=== PATIENT | female | born 1990 | race Two or more races ===

== ENCOUNTER 2022-09-18 09:51 | Emergency (ER) | payer OTHER, MEDICAID ==
[~2022-09-18] VITALS: Ht 160 cm; Wt 96.8 kg
[2022-09-18 10:10] VITALS: BP 136/77
[2022-09-18] MEDS ORDERED: HYDROcodone-ACET 10/325MG TAB PO ONE (10:15)
[2022-09-18 10:35] LABS: Basophils # (auto) 0.1 10 ^3/uL (0-0.2); Basophils % (auto) 0.9 % (0.0-2.0); Eosinophils # (auto) 0 10 ^3/uL (0-0.8); Eosinophils % (auto) 0.6 % (0.0-7.0); Hematocrit 40.2 % (36.0-46.0); Hemoglobin 13.5 g/dL (12.2-16.2); Lymphocytes # (auto) 2.5 10 ^3/uL (0.4-5.4); Lymphocytes % (auto) 30.2 % (10.0-50.0); Mean Corpuscular Hemoglobin 29.4 pg (28.0-32.0); Mean Corpuscular Hgb Conc. 33.7 g/dL (32.0-36.0); Mean Corpuscular Volume 87.1 fL (80.0-100.0); Monocytes # (auto) 0.5 10 ^3/uL (0-1.3); Monocytes % (auto) 5.7 % (0.0-12.0); Neutrophils # (auto) 5.1 10 ^3/uL (1.6-8.6); Neutrophils % (auto) 62.6 % (37.0-80.0); Nucleated Red Blood Cells % 0.1 %; Red Blood Cells 4.61 10^6/uL (4.0-5.20); Red Cell Distribution Width 14.4 % (11.8-14.3); White Blood Cell 8.1 10^3/uL (4.4-10.8)
[2022-09-18 10:57] LABS: Albumin 3.8 g/dL (3.4-5.0); Calcium 8.9 mg/dL (8.5-10.1); Potassium 4.1 mmol/L (3.5-5.1)
[2022-09-18 11:02] LABS: BUN/Creatinine Ratio 11.3; Bilirubin, Total 0.4 mg/dL (0.2-1.0); Total Protein 7.5 g/dL (6.4-8.2)
[2022-09-18 11:18] LABS: Urine Bacteria NONE SEEN /hpf (None Seen); Urine Blood Negative /uL (Negative); Urine Specific Gravity 1.008 (1.001-1.035); Urine WBC 3 /hpf (0 - 5)
[2022-09-18] MEDS ORDERED: DICYCLOMINE HCL 10 MG CAP PO ONE (15:00)
[2022-09-18] MEDS ORDERED: ONDA-144 PO (15:59)
[2022-09-18] MEDS ORDERED: HYDR-4798 PO (15:59)
== END 2022-09-18 16:10 | disposition home or self-care (01) ==
LOC: ER 09:51
DX: R74.01 Elevation of levels of liver transaminase levels (principal); N83.209 Unspecified ovarian cyst, unspecified side
CPT/HCPCS: 36415; 80053; 81001; 83690; 85025